=== PATIENT | female | born 1990 | race Caucasian/White ===

== ENCOUNTER 2017-07-12 09:37 | Day surgery (SDC) | payer BC ==
[~2017-07-12] VITALS: Ht 170.2 cm; Wt 64.9 kg
[~2017-07-12 09:37] MED LIST: NO MEDICATIONS
[2017-07-12] MEDS ORDERED: LR 1,000 ML IV ONE (09:45)
[2017-07-12] MEDS ORDERED: ACETAMINOPHEN 650 MG SUPP PR ONE (10:00)
[2017-07-12] MEDS ORDERED: PERC5TAB12 PO (11:22)
[2017-07-12] MEDS ORDERED: MIDAZOLAM INJ 2 MG/2 ML VIAL (J2250) As Ordered ONE (12:36)
[2017-07-12] MEDS ORDERED: dexameTHASONE 4 MG/ML 1ML VIAL (J1100) As Ordered ONE (12:36)
[2017-07-12] MEDS ORDERED: LIDOCAINE 2% INJ 100 MG/5 ML SDV (FOR ANES.) As Ordered ONE (12:36)
[2017-07-12] MEDS ORDERED: KETOROLAC 60 MG/2 ML VIAL (J1885) As Ordered ONE (12:36)
[2017-07-12] MEDS ORDERED: ONDANSETRON 4MG/2ML VIAL (J2405) As Ordered ONE (12:36)
[2017-07-12] MEDS ORDERED: PROPOFOL 200 MG/20 ML VIAL As Ordered ONE (12:36)
[2017-07-12] MEDS ORDERED: fentaNYL 100 MCG/2 ML INJECTION (J3010) As Ordered ONE (12:36)
[2017-07-12] MEDS ORDERED: ACETAMINOPHEN 650 MG SUPP As Ordered ONE (12:58)
[2017-07-12] MEDS ORDERED: METHYLERGONOVINE MALEATE 0.2 MG/ML VIAL (J2210) As Ordered ONE (13:18)
[2017-07-12] MEDS ORDERED: METHYLERGONOVINE MALEATE 0.2 MG/ML VIAL (J2210) IM ONE (13:18)
[2017-07-12] MEDS ORDERED: ONDANSETRON 4MG/2ML VIAL (J2405) IV PRN (13:45)
[2017-07-12] MEDS ORDERED: MEPERIDINE INJ 25 MG/ML VIAL (J2175) IV PRN (13:45)
[2017-07-12] MEDS ORDERED: fentaNYL 100 MCG/2 ML INJECTION (J3010) IV PRN (13:45)
[2017-07-12] MEDS ORDERED: LR 1,000 ML IV SCH (13:45)
[2017-07-12] MEDS ORDERED: PERCOCET 5MG/325MG TAB PO PRN ×2 (13:45→14:00)
[2017-07-12] MEDS ORDERED: METOCLOPRAMIDE INJ 10MG/2ML VIAL (J2765) IV PRN (13:45)
[2017-07-12 14:45] VITALS: BP 101/63
[2017-07-12] MEDS ORDERED: IBUPROFEN 800 MG TAB PO SCH (18:00)
== END 2017-07-12 15:00 | disposition home or self-care (01) ==
LOC: M SDC 09:37
PROVIDERS: ATTEND Obstetrics & Gynecology
DX: O02.1 Missed abortion (principal)
CPT/HCPCS: 59820; 88305; J1100; J1885; J2210; J2250; J2405; J3010

== ENCOUNTER → 2018-07-25 | Outpatient (REF) | payer BC ==
[2018-07-25 14:12] LABS: HEMATOCRIT 40.8 % (36.0-47.0); HEMOGLOBIN 13.7 g/dl (12.0-15.5); MEAN CORPUSCULAR HEMOGLOBIN 31.9 pg (27.0-33.0); MEAN CORPUSCULAR HGB CONC 33.6 g/dl (32.0-36.5); MEAN CORPUSCULAR VOLUME 94.9 fl (80.0-96.0); PLATELET COUNT, AUTOMATED 253 10^3/uL (150-450); RED CELL DISTRIBUTION WIDTH 12.4 % (11.5-14.5); WHITE BLOOD COUNT 6.6 10^3/uL (4.0-10.0)
[2018-07-25 15:38] LABS: HEPATITIS C VIRUS ABY INDEX 0.1 INDEX (<0.8)
[2018-07-25 15:38] LABS: HBsAg Prenatal NEGATIVE (NEGATIVE); HCG, SERUM QUANTITATIVE 7429 MIU/ML; HIV 1&2 SCREEN CENTAUR NEGATIVE (NEGATIVE); RUBELLA IgG QUALITATIVE IMMUNE (IMMUNE)
== END ==
LOC: M LAB REF 13:13
DX: O36.80X0 Pregnancy with inconclusive fetal viability, not applicable or unspecified (principal)

== ENCOUNTER → 2018-10-26 | Outpatient (REF) | payer BC ==
[~2018-10-26] MED LIST changes: +PERC5TAB12 PO
[2018-10-26 15:54] LABS: CHLAMYDIA DNA AMPLIFICATION NEGATIVE (NEGATIVE); GC DNA AMPLIFICATION NEGATIVE (NEGATIVE)
== END ==
LOC: M LAB REF 14:15
PROVIDERS: ATTEND Obstetrics & Gynecology
DX: Z34.82 Encounter for supervision of other normal pregnancy, second trimester (principal); Z36.89 Encounter for other specified antenatal screening

== ENCOUNTER 2018-11-20 19:18 | Outpatient (CLI) | payer BC ==
[~2018-11-20] VITALS: Ht 170.2 cm; Wt 68.8 kg
[2018-11-20 19:32] VITALS: BP 136/85
[2018-11-20 20:43] LABS: BASO % 0.3 % (0.0-1.0); EOS # 0.1 10^3/uL (0.0-0.50); EOS % 1.1 % (0.0-3.0); HEMATOCRIT 34.8 % (36.0-47.0); HEMOGLOBIN 11.8 g/dl (12.0-15.5); LYMPH # 2.2 10^3/uL (1.5-6.5); LYMPH % 22.5 % (24.0-44.0); MEAN CORPUSCULAR HEMOGLOBIN 31.2 pg (27.0-33.0); MEAN CORPUSCULAR HGB CONC 33.9 g/dl (32.0-36.5); MEAN CORPUSCULAR VOLUME 92.1 fl (80.0-96.0); MONO # 0.6 10^3/uL (0.0-0.8); MONO % 6.5 % (0.0-5.0); NEUTROPHILS # 6.8 10^3/uL (1.8-7.7); NEUTROPHILS % 68.9 % (36.0-66.0); PLATELET COUNT, AUTOMATED 236 10^3/uL (150-450); RED BLOOD COUNT 3.78 10^6/uL (4.00-5.40); WHITE BLOOD COUNT 9.9 10^3/uL (4.0-10.0)
[2018-11-20 21:00] LABS: AMPHETAMINES URINE REFLEX NEGATIVE (NEGATIVE); BARBITURATES URINE REFLEX NEGATIVE (NEGATIVE); BENZODIAZEPINES URINE REFLEX NEGATIVE (NEGATIVE); CANNABINOIDS URINE REFLEX NEGATIVE (NEGATIVE); COCAINE METABOLITE URINE REFLE NEGATIVE (NEGATIVE); METHADONE URINE REFLEX NEGATIVE (NEGATIVE); OPIATES URINE REFLEX NEGATIVE (NEGATIVE); PHENCYCLIDINE URINE REFLEX NEGATIVE (NEGATIVE)
[2018-11-20 21:05] LABS: ALBUMIN 3.2 GM/DL (3.2-5.2); ALT/SGPT 23 U/L (12-78); BILIRUBIN,TOTAL 0.3 MG/DL (0.2-1.0); BLOOD UREA NITROGEN 11 MG/DL (7-18); CALCIUM LEVEL 8.8 MG/DL (8.5-10.1); CARBON DIOXIDE LEVEL 23 MEQ/L (21-32); CHLORIDE LEVEL 110 MEQ/L (98-107); CREATININE FOR GFR 0.59 MG/DL (0.55-1.30); GLOMERULAR FILTRATION RATE > 60.0 (>60); GLUCOSE, FASTING 85 MG/DL (70-100); POTASSIUM SERUM 3.6 MEQ/L (3.5-5.1); SODIUM LEVEL 140 MEQ/L (136-145); TOTAL PROTEIN 6.6 GM/DL (6.4-8.2)
[2018-11-21 01:46] LABS: CHLAMYDIA DNA AMPLIFICATION NEGATIVE (NEGATIVE); GC DNA AMPLIFICATION NEGATIVE (NEGATIVE)
--- NOTE | 2018-11-21 07:12 | HPE ---
LABOR AND DELIVERY NOTE AND TRANSFER NOTE DATE OF ADMISSION: 11/20/2018 DATE OF TRANSFER: 11/20/2018 Desirae is a 28-year-old female, 2, para 0-0-1-0 with an estimated gestational age (EGA) of 23-3/7 weeks gestation by last menstrual period (LMP) and by a 6 week ultrasound of 22-4/7 weeks who presented to labor and delivery with gross rupture of membranes. She reports no contractions. No bleeding. She was at work, stood up and noticed a large gush of fluid and she continued to leak fluid up until presentation to labor and delivery. Upon evaluation on labor and delivery, she was found grossly ruptured. Her full record was reviewed which was essentially unremarkable. She did have a miscarriage at around 6 to 8 weeks back in June 2017. She subsequently with this had a level II ultrasound that shows an echogenic focus for which she had a repeat scheduled. Other than that, no significant issues during her . LABS: Blood type is O+, rubella immune, hepatitis negative, HIV negative, GC and chlamydia negative. PAST MEDICAL HISTORY: Denies. PAST SURGICAL HISTORY: Dilation and curettage times one. SOCIAL HISTORY: She is a dental hygienist. Denies any alcohol or drug use. REVIEW OF SYSTEMS: Unremarkable. MEDICATIONS: vitamin. ALLERGIES: NO KNOWN DRUG ALLERGIES. PHYSICAL EXAMINATION ON ADMISSION: Normal-appearing pleasant 28-year-old female in no acute distress. HEENT: Grossly within normal limits. Abdomen: Soft, nontender, nondistended. Extremities: No clubbing, cyanosis or edema. Vaginal Exam: Gross rupture of membrane with pooling, Nitrazine and fern positive. Cervix is closed, thick and posterior. heart rate 140 to 150s. ASSESSMENT: 1. Intrauterine at 23-3/7 weeks gestation by LMP and 22-4/7 weeks gestation by a 6 week first trimester ultrasound. 2. Gross rupture of membrane, not in labor. PLAN: The patient is counseled extensively. A phone conversation was done with the center and discussed the patient in detail with Dr. Orta who did agree to accept transfer. The prognosis was discussed with the patient. She is aware that the prognosis is extremely poor and that an ultrasound will be done at the center. If the estimated weight is under 500 grams, she will be observed but no further measures will be taken. She is also fully aware that the likelihood of intact survival is really low. She did agree to the transfer and the transfer team was mobilized. She is also aware of potential risk of delivery en route and possible risks of increased infection. Please note that both the patient and the father of the baby were there during counseling and agree with the transfer.
== END 2018-11-20 22:00 | disposition short-term general hospital (02) ==
LOC: M LDO 19:18
PROVIDERS: ATTEND Obstetrics & Gynecology
DX: O42.912 Preterm premature rupture of membranes, unspecified as to length of time between rupture and onset of labor, second trimester (principal); Z3A.23 23 weeks gestation of pregnancy
CPT/HCPCS: 59025; 80053; 80307; 85025; 86850; 86900; 86901; 87081; 87661; G0378; G0463

== ENCOUNTER → 2019-03-06 | Outpatient (CLI) | payer BC, MEDICAID ==
--- NOTE | 2019-03-07 02:08 | REP ---
Clinical: Trauma. Technique: AP, lateral, bilateral oblique views of the left ankle. Findings: Mild lateral swelling suggests inversion injury. No acute fracture or dislocation. Joint spaces and ankle mortise are intact. Impression: Mild lateral swelling. No acute fracture. Electronically Signed by Nicolas Hood MD 03/07/2019 02:00 A
== END ==
LOC: M RAD 21:03
PROVIDERS: ATTEND Physician Assistant
DX: M25.472 Effusion, left ankle (principal)

== ENCOUNTER → 2019-10-15 | Outpatient (REF) | payer BC, MEDICAID ==
[2019-10-15 18:16] LABS: BASO % 0.4 % (0.0-1.0); EOS % 0.5 % (0.0-3.0); HEMATOCRIT 41.2 % (36.0-47.0); HEMOGLOBIN 13.5 g/dl (12.0-15.5); LYMPH # 2.5 10^3/uL (1.5-5.0); LYMPH % 31.9 % (24.0-44.0); MEAN CORPUSCULAR HEMOGLOBIN 31.5 pg (27.0-33.0); MEAN CORPUSCULAR HGB CONC 32.8 g/dl (32.0-36.5); MONO # 0.6 10^3/uL (0.0-0.8); MONO % 7.5 % (0.0-5.0); NEUTROPHILS # 4.7 10^3/uL (1.5-8.5); NEUTROPHILS % 59.4 % (36.0-66.0); PLATELET COUNT, AUTOMATED 232 10^3/uL (150-450); RED BLOOD COUNT 4.29 10^6/uL (4.00-5.40); WHITE BLOOD COUNT 7.9 10^3/uL (4.0-10.0)
[2019-10-15 18:17] LABS: HCG, SERUM QUANTITATIVE 435 MIU/ML
[2019-10-16 10:08] LABS: RUBELLA IgG QUALITATIVE IMMUNE (IMMUNE)
[2019-10-16 10:36] LABS: HEPATITIS C VIRUS ABY INDEX < 0.0 INDEX (<0.8)
[2019-10-16 10:37] LABS: HIV 1&2 SCREEN CENTAUR NEGATIVE (NEGATIVE)
== END ==
LOC: M LAB REF 16:37
PROVIDERS: ATTEND Obstetrics & Gynecology
DX: Z32.01 Encounter for pregnancy test, result positive (principal)

== ENCOUNTER → 2019-10-17 | Outpatient (REF) | payer BC, MEDICAID | LOC: M LAB REF 12:36 | PROVIDERS: ATTEND Obstetrics & Gynecology | DX: O36.80X0 Pregnancy with inconclusive fetal viability, not applicable or unspecified (principal); Z3A.00 Weeks of gestation of pregnancy not specified ==

== ENCOUNTER → 2019-10-21 | Outpatient (REF) | payer BC, MEDICAID | LOC: M LAB REF 16:24 | PROVIDERS: ATTEND Obstetrics & Gynecology | DX: O36.80X0 Pregnancy with inconclusive fetal viability, not applicable or unspecified (principal); Z3A.00 Weeks of gestation of pregnancy not specified ==

== ENCOUNTER → 2019-10-30 | Outpatient (CLI) | payer BC, MEDICAID ==
--- NOTE | 2019-10-30 18:30 | REP ---
Clinical: Dating and viability. Technique: Transabdominal and transvaginal first trimester obstetrical ultrasound with color Doppler evaluation. Findings: Ultrasound examination demonstrates single live early intrauterine . Gestational sac with yolk sac and pole noted. CRL of 5 mm corresponds to 6 weeks 2 days gestational age with estimated date of delivery 06/22/2020. heart rate equals 130 beats per minute. Maternal ovaries are normal in appearance and vascularity. 4.0 cm left maternal ovarian cyst likely corpus luteum. Impression: Single live early intrauterine at 6 weeks 2 days gestational age. Complete anatomical assessment should be performed at 19-20 weeks. 4 cm presumed left corpus luteal cyst. Electronically Signed by Nicolas Hood MD 10/30/2019 06:22 P
== END ==
LOC: M WHC 13:37
PROVIDERS: ATTEND Obstetrics & Gynecology
DX: Z32.01 Encounter for pregnancy test, result positive (principal); Z3A.01 Less than 8 weeks gestation of pregnancy

== ENCOUNTER → 2020-09-01 | Outpatient (CLI) | payer SELFPAY | LOC: M LABSMTC 11:50 | PROVIDERS: ATTEND Pediatrics | DX: Z20.822 Contact with and (suspected) exposure to COVID-19 (principal) ==

== ENCOUNTER 2022-08-31 10:08 | Outpatient (CLI) | payer BC, MEDICAID ==
[~2022-08-31] VITALS: Ht 170.2 cm; Wt 76.8 kg
[~2022-08-31 10:08] MED LIST changes: -HOLTER MONITOR XX; -MAKE275I SC; -MULTTAB20 PO; -TUMS750C5 PO
[2022-08-31] MEDS ORDERED: TUMS750C5 PO (10:17)
[2022-08-31] MEDS ORDERED: MULTTAB20 PO (10:17)
[2022-08-31 10:28] VITALS: BP 113/64
[2022-08-31] MEDS ORDERED: MAKE275I SC (11:16)
[2022-08-31] MEDS ORDERED: HOLTER MONITOR XX (16:35)
== END 2022-08-31 12:41 | disposition home or self-care (01) ==
LOC: M LDO 10:08
PROVIDERS: ATTEND Advanced Practice Midwife
DX: O26.893 Other specified pregnancy related conditions, third trimester (principal); R42 Dizziness and giddiness; R06.02 Shortness of breath; O34.33 Maternal care for cervical incompetence, third trimester; O34.219 Maternal care for unspecified type scar from previous cesarean delivery; Z3A.31 31 weeks gestation of pregnancy
CPT/HCPCS: 59025; G0378; G0463

== ENCOUNTER 2022-08-31 13:10 | Emergency (ER) | payer BC, MEDICAID ==
[~2022-08-31] VITALS: Ht 170.2 cm; Wt 75.3 kg
[~2022-08-31 13:10] MED LIST changes: +MAKE275I SC; +MULTTAB20 PO; +TUMS750C5 PO
[2022-08-31 15:17] LABS: BASO % 0.2 % (0.0-1.0); EOS # 0.1 10^3/uL (0.0-0.5); EOS % 0.8 % (0.0-3.0); HEMATOCRIT 36.4 % (36.0-47.0); HEMOGLOBIN 12.1 g/dl (12.0-15.5); LYMPH # 1.8 10^3/uL (1.5-5.0); LYMPH % 19.2 % (24.0-44.0); MEAN CORPUSCULAR HEMOGLOBIN 31.5 pg (27.0-33.0); MEAN CORPUSCULAR HGB CONC 33.2 g/dl (32.0-36.5); MEAN CORPUSCULAR VOLUME 94.8 fl (80.0-96.0); MONO # 0.5 10^3/uL (0.0-0.8); MONO % 5.9 % (2.0-8.0); NEUTROPHILS # 6.7 10^3/uL (1.5-8.5); PLATELET COUNT, AUTOMATED 204 10^3/uL (150-450); RED BLOOD COUNT 3.84 10^6/uL (4.00-5.40); WHITE BLOOD COUNT 9.1 10^3/uL (4.0-10.0)
[2022-08-31 15:42] LABS: MAGNESIUM LEVEL 1.9 MG/DL (1.8-2.4)
[2022-08-31 15:43] LABS: BLOOD UREA NITROGEN 6 MG/DL (9-23); CALCIUM LEVEL 8.5 MG/DL (8.5-10.1); CARBON DIOXIDE LEVEL 24 MMOL/L (20-31); CHLORIDE LEVEL 107 MMOL/L (98-107); CREATININE FOR GFR 0.54 MG/DL (0.55-1.30); GLOMERULAR FILTRATION RATE > 60.0 (>60); GLUCOSE, FASTING 92 MG/DL (60-100); POTASSIUM SERUM 3.7 MMOL/L (3.5-5.1); SODIUM LEVEL 138 MMOL/L (136-145)
[2022-08-31 15:47] LABS: FREE THYROXINE INDEX 2.6 % (1.3-4.8); T UPTAKE 23.7 % (22.5-37.0); THYROID STIMULATING HORMONE 0.733 uIU/ML (0.55-4.78)
[2022-08-31] MEDS ORDERED: HOLTER MONITOR XX (16:35)
[2022-08-31 17:19] VITALS: BP 107/61
== END 2022-08-31 17:38 | disposition home or self-care (01) ==
LOC: M ED 16:13
DX: I49.8 Other specified cardiac arrhythmias (principal); O99.413 Diseases of the circulatory system complicating pregnancy, third trimester; Z3A.31 31 weeks gestation of pregnancy; O09.93 Supervision of high risk pregnancy, unspecified, third trimester

== ENCOUNTER → 2022-08-31 | Outpatient (CLI) | payer BC, MEDICAID ==
[~2022-08-31] MED LIST changes: +HOLTER MONITOR XX; +MAKE275I SC; +MULTTAB20 PO; +PREN200C PO; +TUMS750C5 PO
== END ==
LOC: M EKG 16:49
PROVIDERS: ATTEND Emergency Medicine
DX: Z53.9 Procedure and treatment not carried out, unspecified reason (principal)